=== PATIENT | female | born 1970 | race Two or more races ===

== ENCOUNTER 2017-10-25 09:43 | Emergency (ER) | payer MEDICAID ==
[~2017-10-25] VITALS: Ht 162.6 cm; Wt 72.6 kg
[2017-10-25] MEDS ORDERED: oxyCODONE HCL/Acetaminophen 5/325mg ORAL ONE (10:15)
--- NOTE | 2017-10-25 10:18 | Emergency Room Report ---
History of Present Illness General Chief Complaint: Lower Back Pain or Injury Source: Patient Present Illness HPI Patient presents with lumbar pain. It started 2 days ago. She was at work when this happened. 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 The pain is left sided lumbar pain radiates somewhat into the buttock area. There is no saddle numbness, incontinence, numbness down her leg. The pain is keeping her awake at night and has been severe. Yesterday she took 800 mg Motrin 3 times during the day. The pain was 9/10 before the Motrin and 8/10 today. She denies any fevers or chills. Is no dysuria. She's on her menstruation at this time. She had back pain similar to this several years ago. She was never seen at that time. No imaging studies have been done. She denies any trauma or accidents. No chest pain, palpitations, nausea, vomiting, diarrhea, dysuria, abdominal pain , shortness of breath, depression, visual changes, headache. Allergies: Coded Allergies: No Known Allergies (Unverified , 10/25/17) Patient History Past Medical History: see triage record Past Surgical History: claudette Social History: Denies: smoking, alcohol use Social History Narrative cares for elderly person Last Menstrual Period: on period right now Now: No Reviewed Nursing Documentation: PMH: Agreed; PSxH: Agreed Nursing Documentation-PMH Past Medical History: No History, Except For Hx Gastrointestinal Problems: Yes - Gallbladder surgery 8 years ago Review of Systems All Other Systems: negative except mentioned in HPI Physical Exam Vital Signs Date Time Temp Pulse Resp B/P (MAP) Pulse Ox O2 Delivery O2 Flow Rate FiO2 10/25/17 09:49 99.1 79 16 138/71 97 Room Air 99.1 Sp02 EP Interpretation: reviewed, normal General Appearance: well appearing, no apparent distress Head: normocephalic, atraumatic Eyes: bilateral eye normal inspection, bilateral eye PERRL ENT: hearing grossly normal, normal voice Neck: full range of motion, supple Respiratory: no respiratory distress, speaking full sentences Gastrointestinal: normal inspection, normal bowel sounds, soft Musculoskeletal: gait/station normal, normal range of motion, other - Muscle tenderness left l It's rate leg raise i Neurologic: alert, oriented x3, motor strength/tone normal, DTRs symmetric, sensory intact, normal gait Psychiatric: mood/affect normal Reflexes: 2+ knee (R), 2+ knee (L), 2+ ankle (R), 2+ ankle (L) Skin: no rash Medical Decision Making Diagnostic Impression: Primary Impression: Low back pain Qualified Codes: M54.5 - Low back pain Additional Impression: UTI (urinary tract infection) Qualified Codes: N30.00 - Acute cystitis without hematuria ER Course Patient presents with nontraumatic lumbar pain. Differential includes renal stone, UTI, lumbar strain amongst others. No prior studies of been done. X- rays are indicated as well as urinalysis. She's on her menstruation at this time however test will be ordered. The patient retreated with a dose of Percocet and also Motrin here. Labs with pyuria. Macrobid ordered. LS films min DJD, no major findings. Improved with treatment. Discussed need for follow up and back exercises. Patient stable for outpatient observation and treatment. Laboratory Tests Test 10/25/17 10:20 Urine Color Pale yellow Urine Appearance Slightly cloudy Urine pH 6 (4.5-8.0) Urine Specific [place] 1.010 (1.005-1.035) Urine Protein 2+ (NEGATIVE) H Urine Glucose (UA) Negative (NEGATIVE) Urine Ketones Negative (NEGATIVE) Urine Occult Blood 5+ (NEGATIVE) H Urine Nitrite Negative (NEGATIVE) Urine Bilirubin Negative (NEGATIVE) Urine Urobilinogen Normal MG/DL (0.0-1.0) Urine Leukocyte Esterase 3+ (NEGATIVE) H Urine RBC 60-80 /HPF (0 - 2) H Urine WBC 5-10 /HPF (0 - 2) H Urine Squamous Epithelial Cells Few /LPF (NONE/OCC) Urine Bacteria Occasional /HPF (NONE) Urine HCG, Qualitative Negative (NEGATIVE) Other X-Ray Diagnostic Results Other X-Ray Diagnostic Results : X-Ray ordered: L/S spine # of Views/Limited Vs Complete: 3 View Indication: Pain Interpretation: no dislocation, no soft tissue swelling, no fractures Impression: Other Electronically Signed by: Electronically signed by Elvis Vigil MD Last Vital Signs Date Time Temp Pulse Resp B/P (MAP) Pulse Ox O2 Delivery O2 Flow Rate FiO2 10/25/17 15:36 98.3 72 16 138/71 97 Room Air 98.3 Status: improved Disposition: HOME, SELF-CARE Condition: Improved Scripts Nitrofurantoin Monohyd/M-Cryst* (MACROBID 100 MG*) 100 Mg Capsule 100 MG ORAL EVERY 12 HOURS, #14 CAP Prov: Elvis Vigil M.D. 10/25/17 Ibuprofen* (MOTRIN*) 600 Mg Tablet 600 MG ORAL Q6H PRN for For Pain, #20 TAB Prov: Elvis Vigil M.D. 10/25/17 Tramadol Hcl* (ULTRAM*) 50 Mg Tablet 50 MG ORAL Q6H PRN for For Pain, #14 TAB 0 Refills Prov: Elvis Vigil M.D. 10/25/17 Elvis Vigil M.D. Oct 25, 2017 10:18
[2017-10-25 10:37] LABS: APPEARANCE,URINE SLIGHTLY CLOUDY; BILIRUBIN, URINE NEGATIVE (NEGATIVE); COLOR,URINE PALE YELLOW; GLUCOSE, URINE (UA) NEGATIVE (NEGATIVE); KETONES,URINE NEGATIVE (NEGATIVE); LEUKOCYTE ESTERASE ,URINE 3+ (NEGATIVE); NITRITE,URINE NEGATIVE (NEGATIVE); PH,URINE 6 (4.5-8.0); PROTEIN,URINE 2+ (NEGATIVE); UROBILINOGEN,URINE NORMAL MG/DL (0.0-1.0)
[2017-10-25 11:04] VITALS: BP 138/71
--- NOTE | 2017-10-25 12:20 | Diagnostic Imaging Report ---
Indication: Pain Technique: 3 views of the lumbar spine Comparison: None Findings:Vertebral body heights are preserved. Disc spaces are preserved. Pedicles are intact. There are cholecystectomy clips. Sacral arches are preserved. Sacral and joint spaces are preserved. Impression: No acute process
[2017-10-25] MEDS ORDERED: NITROFURANTOIN100 M2 ORAL (12:43)
[2017-10-25] MEDS ORDERED: TRAMADOL HCL50 MG ORAL (12:43)
[2017-10-25] MEDS ORDERED: IBUPROFEN600 MG ORAL (12:43)
[2017-10-25 15:36] VITALS: BP 138/71
== END 2017-10-25 14:00 | disposition home or self-care (01) ==
LOC: EMR 10:34
DX: M54.5 Low back pain (principal); N39.0 Urinary tract infection, site not specified
CPT/HCPCS: 72020; 81003; 81025; 99283